=== PATIENT | male | born 2005 | race Hispanic/Latino ===

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

== ENCOUNTER 2024-11-11 17:49 | Emergency (ER) | payer SELFPAY ==
[~2024-11-11] VITALS: Ht 172.7 cm; Wt 90.7 kg
[~2024-11-11 17:49] MED LIST: AMOX-429 PO; IBUP-1493 PO; IBUP-2077 PO; SILV20CR11 TP
--- NOTE | 2024-11-11 18:26 | NUR ---
wound care done to right hand
[2024-11-11] MEDS: NEOMY SULF/BACITRA/POLYMYXIN B 1 EACH PACKET TP SCH (18:46)
[2024-11-11] MEDS: acetaMINOPHEN 500 MG TABLET PO SCH (18:46)
[2024-11-11] MEDS: teTANUS/diphthERIA TOXOID [ADULT] 0.5 ML VIAL IM ONE (18:47)
[2024-11-11] MEDS: LIDOCAINE HCL 1% 20 ML VIAL INJ SCH (18:47)
[2024-11-11] MEDS ORDERED: CEPH500B PO (19:06)
--- NOTE | 2024-11-11 19:06 | ERN ---
ED Note History of Present Illness Stated Complaint: RT 1ST FINGER LACERATION Chief Complaint: Laceration/Avulsion Time Seen by MD: 17:52 Time Seen by Midlevel: 17:25 Dictation: The patient is a 19-year-old male with no past medical history who presents to the emergency department with right thumb laceration onset 15 minutes. Patient reports he was during ER for with a machete when he accidentally injured his finger with a machete. Unknown last tetanus Allergies: Coded Allergies: No Known Allergies (Unverified Allergy, Unknown, 03/29/21) Home Meds Active Scripts Ibuprofen (Motrin/Advil) 800 Mg Tab, 800 MG PO TID, #30 TAB Prov:YONG MIN MD 12/08/22 Silver Sulfadiazine (Silvadene) 20 Gm Cream..g., 20 GM TP TID, #90 GM Prov:YONG MIN MD 12/08/22 Ibuprofen (Ibuprofen 800 mg Tab) 800 Mg Tab, 800 MG PO Q8H PRN for PAIN, #30 TAB Prov:MAGDALENE RESENDIZ MD 03/29/21 Amoxicillin/Potassium Clav (Augmentin 875-125 Tablet) 1 Each Tablet, 1 TAB PO BID for 10 Days, #20 TAB 0 Refills Prov:MAGDALENE RESENDIZ MD 03/29/21 Past Medical History Past Medical History: No Pertinent History Surgical History: None Family History: Negative Social History: Negative, Lives with family RN Note Reviewed/Agreed w/PFSH: Yes Review of System Dictation Constitutional: Negative for fever,chills, and weight loss Eyes: Negative for injury, pain,redness, and discharge ENT: Negative for injury,pain or swelling Cardiovascular: Negative for chest pain, palpitations, and edema Respiratory: Negative for shortness of breath, cough, and wheezing, Abdomen/GI: Negative for abdominal pain, nausea, vomiting, diarrhea, and constipation Back: Negative for injury and pain : Negative for injury, bleeding and discharge MS/Extremity: Negative for injury and deformity Skin: Negative for rash, and discoloration positive for right thumb laceration Neuro: Negative for headache, weakness, numbness, tingling, and seizure Psych: Negative for suicide ideation, homicidal ideation, and hallucinations Initial Vital Sign VS Vital Signs Date Time Temp Pulse Resp B/P (MAP) Pulse Ox O2 Delivery O2 Flow Rate FiO2 11/11/24 17:51 98.6 110 20 128/70 98 Room Air 0 11/11/24 18:11 21 Physical Exam Dictation Vital Signs reviewed General Appearance: Alert, oriented x 3, no acute distress, well developed, nourished. Head and Face: non-traumatic. Eyes: PERRL, pink conjunctivas, eyelid no trauma, anterior chamber with arcus senilis. Ears: Pinnas intact and no signs of trauma or erythema ear canals clear and no discharge TM no erythema Nose: No discharge, no bleeding. Oropharynx: Mouth normal, tongue pink. pharynx clear,no erythema, tonsils no exudates, no abscesses noted, mucous membrane moist Neck: Supple, non-tender, no thyromegaly, no masses, no JVD, no bruits Breast:Deferred Chest:No tenderness, no crepitus, no paradoxical movement, no retractions Lungs:Clear, well-ventilated, symmetric, no rales, no wheezing, no rhonchi, no stridor, good breath sounds bilaterally Heart: Regular rate, regular rhythm, no murmur, no gallops Vascular: no peripheral edema, Abdomen: Soft, positive bowel sounds, nondistended, no guarding, nontender, no rebound, no masses no hepatomegaly, no splenomegaly, no Vidal's sign, no hernias. Rectal: Deferred Genital: Deferred Neurological: Normal speech, motor function intact, sensory function intact Musculoskeletal: Neck nontender, full range of motion, back nontender, full range of motion, Extremities: nontender, full range of motion Skin: Color pink, dry, no turgor, no rash, no abrasions, no contusions. 2 cm laceration to proximal right thumb, minimal bleeding Lymphatic: Deferred Results (Laboratory/Radiology) Labs Reviewed?: Yes ED Course ED Course Orders Procedure Category Date Status Time Finger(S) 2+Vws Rt RAD 11/11/24 Taken 18:00 Lidocaine Hcl 1% 20ml PHA 11/11/24 In Process Vial (Lidocaine Hc 18:00 Laceration Tray Set CPOE 11/11/24 Transmitted Up (Er) 18:00 Tetanus,Diphtheria PHA 11/11/24 Complete Tox [Adult] (Diphther 18:00 Acetaminophen 500mg PHA 11/11/24 In Process Tab (Tylenol 500mg T 18:00 Neomy PHA 11/11/24 In Process Sulf/Bacitra/Polymyxin 18:00 Wound Care (Er) CPOE 11/11/24 Transmitted 18:00 Current Medications Medications (Trade) Dose Ordered Sig/Rk Route PRN Reason Start Time Stop Time Status Last Admin Dose Admin Acetaminophen (TYLenol 500MG TAB) 1,000 mg ONCE PO 11/11/24 18:00 11/11/24 22:00 11/11/24 18:46 Lidocaine HCl (Lidocaine HCl 1% 20ml Vial) 10 ml ONCE INJ 11/11/24 18:00 11/11/24 22:00 11/11/24 18:47 Neomycin/ Polymyxin/ Bacitracin (Triple Antibiotic Ointment) 1 appl ONCE TP 11/11/24 18:00 11/11/24 22:00 11/11/24 18:46 Tetanus/ Diphtheria Toxoids Adsorbed (DiphthERIA-teTANUS TOXOID [ADULT]/ DECAVAC) 0.5 ml ONCE ONCE IM 11/11/24 18:00 11/11/24 18:09 DC 11/11/24 18:47 Vital Signs Date Time Temp Pulse Resp B/P (MAP) Pulse Ox O2 Delivery O2 Flow Rate FiO2 11/11/24 18:11 98.6 100 20 128/70 98 Room Air* 0 21 11/11/24 17:51 98.6 110 20 128/70 98 Room Air 0 Medical Decision Making MDM The patient is a 19-year-old male with no past medical history who presents to the emergency department with right thumb laceration onset 15 minutes. Patient reports he was during ER for with a machete when he accidentally injured his finger with a machete. Unknown last tetanus X-ray showed no obvious fractures. Laceration repair was completed. Patient tolerated procedure well. Wound was cleaned. Patient updated for tetanus. Patient in no acute distress. Will be discharged to follow up with PCP. Differential diagnosis: Laceration, abrasion, open fracture Need for hospitalization: Patient does not meet criteria for hospitalization. There are no social concerns with this patient. Procedure Procedure Dictation: Time and Date Performed:11/11/2024 INDICATION: Laceration Location: Right thumb Informed consent was obtained. Pre-procedure time out was obtained. Anesthetic: 1% lidocaine Manual prep of skin and wound was done with hibiclens. Foreign Body: NO foreign bodies were identified. Length Repaired: 2 cm Suture used: Ethilon 4 # of simple sutures: 4 Aseptic technique was used during the entire procedure. Wound Location: upper extremity Wound's Depth, Shape: superficial Wound Explored: clean Betadine Prep?: Yes Anesthesia: 1% Lidocaine Volume Anesthetic (ccs): 10 Wound Debrided: minimal Wound Repaired With: sutures Suture Size/Type: 4:0, nylon Number of Sutures: 4 DX & DISP Disposition: Discharge Departure Impression: Primary Impression: Laceration of right thumb Condition: Stable Scripts Cephalexin Monohydrate (Keflex) 500 Mg Cap 500 MG PO QID for 5 Days, #20 CAP Prov: ARAMIS CAMARA 11/11/24 Additional Instructions: Keep your stitches clean and dry. Do not put your stitches under water, such as in a bath, pool, or martin. This can slow healing and raise your chance of getting an infection. Avoid activities or sports that could hurt the area of your stitches for 1-2 weeks. You should call your doctor if you develop any fever, redness or swelling around the cut, or pus draining from the cut. Your sutures will need to be removed in 10-14 days. FOLLOW-UP WITH PRIMARY CARE PROVIDER IN 1 TO 2 DAYS. TAKE MEDICATIONS DIRECTED HERE IN THE EMERGENCY ROOM. OKAY TO CONTINUE HOME MEDICATIONS UNLESS OTHERWISE DISCUSSED DURING YOUR VISIT IN THE EMERGENCY ROOM TODAY. RETURN TO YOUR NEAREST EMERGENCY ROOM IF SYMPTOMS WORSEN OR IF THERE IS NO IMPROVEMENT. CALL 911 IF YOU NEED IMMEDIATE ASSISTANCE. TAKE TYLENOL [id number] NEEDED AND IF NO CONTRAINDICATIONS ARE PRESENT. INCREASE ORAL HYDRATION. A WOUND CULTURE OR URINE CULTURE WAS ORDERED HERE IN THE EMERGENCY ROOM DEPARTMENT PLEASE FOLLOW-UP WITH PRIMARY CARE PROVIDER AND ADVISE THEM TO GET REPEAT PORTS FROM OUR FACILITY. IF YOU HAD ANY ANANT WRAP/SPLINTS THAT WERE APPLIED HERE, PLEASE DO NOT REMOVE THEM UNTIL YOU SEE YOUR PRIMARY CARE OR SPECIALTY. Referrals: SELF,REFERRAL (PCP) Time of Disposition: 19:05 I have reviewed the case, and I agree with, Diagnosis and Plan ARAMIS CAMARA Nov 11, 2024 19:06
[2024-11-11 19:22] VITALS: BP 122/65; PULSE 89; RESP 18; TEMP 98.5; O2SAT 98
--- NOTE | 2024-11-12 02:03 | HMCIMG ---
EXAM: CR Right Fingers, 3 views. CLINICAL HISTORY: Thumb injury. COMPARISON: None provided. FINDINGS: No acute fracture or aggressive appearing osseous lesion. The joint spaces are within normal limits. Questionable soft tissue laceration in the dorsal, lateral, and proximal aspect of the thumb with diffuse soft tissue swelling. IMPRESSION: No acute bony abnormality is evident. Questionable soft tissue laceration in the dorsal, lateral, and proximal aspect of the thumb with diffuse soft tissue swelling. /[place]
== END 2024-11-11 19:22 | disposition home or self-care (01) ==
LOC: EDH 17:49
DX: S61.011A Laceration without foreign body of right thumb without damage to nail, initial encounter (principal); Z79.1 Long term (current) use of non-steroidal anti-inflammatories (NSAID); W26.8XXA Contact with other sharp object(s), not elsewhere classified, initial encounter; Y93.89 Activity, other specified; Y92.89 Other specified places as the place of occurrence of the external cause; Y99.8 Other external cause status
CPT/HCPCS: 12001; 73140; 90471; 90714; 99283